=== PATIENT | male | born 1990 | race Caucasian/White ===

== ENCOUNTER 2016-12-17 19:57 | Emergency (ER) | payer BC ==
--- NOTE | 2016-12-17 20:24 | ERNOTE ---
Integumentary HPI - Narrative Date of Service: 12/17/16 - General Presenting Symptoms: rash Time Seen by Provider: 12/17/16 20:21 Source: patient, RN notes reviewed Exam Limitations: no limitations - Immun/Allergies/Home Medications Immunizations: IMMUNIZATION HX Immunizations Up to Date Yes History of Influenza Vaccine Yes Allergies/Adverse Reactions: Allergies Allergy/AdvReac Type Severity Reaction Status Date / Time No Known Allergies Allergy Verified 12/17/16 20:03 Home Medications: HOME MEDICATIONS Triamcinolone Acetonide [Kenalog 0.1%] 1 appl TP TID #45 gm 12/17/16 [Last Taken Unknown] predniSONE [Prednisone] 2 tab PO DAILY #15 tab 12/17/16 [Last Taken Unknown] predniSONE [Prednisone] 3 tab PO DAILY 12/17/16 [Last Taken 12/17/16 18:00] - History of Present Illness Narrative: 26 y/o male ambulatory to the ED with a rash covering most of his body that began 2 days ago. [place] been [place] brush. He was seen elsewhere 2 days ago and given a steroid injection. He was also started on prednisone 60 mg daily. He has taken the prednisone today but he has not had any Benadryl since yesterday. He also reports feeling like the rash is in his throat. Date (Duration): 12/15/16 Location: Reports: generalized Quality: Reports: itching Severity: severe Exposure: Reports: poison brandi/oak Prior Treatment: Reports: recently seen, treated by physician. Denies: currently on antibiotics Review of Systems - Review of Systems Constitutional: Absent: fever, chills, malaise EYE: Absent: eye pain, eye discharge ENT: Absent: nose congestion, nasal drainage, sore throat, throat swelling Respiratory: Absent: shortness of breath, cough, wheezing, stridor Cardiology: Present: no symptoms reported Gastrointestinal/Abdominal: Absent: nausea, vomiting, abdominal pain Musculoskeletal: Absent: muscle pain, joint pain Skin: Present: rash, lesions, change in color Neurological: Absent: headache, dizziness/light-headedness Endocrine: Present: no symptoms reported Hematologic/Lymphatic: Present: no symptoms reported Psych: Present: no symptoms reported - Patient's Past Medical History Patient History - Medical: History Unknown Patient History - Cardiac/Respiratory: History Unknown Patient History - Cancer: History Unknown Patient History - Surgical Procedures: No surgical history Patient History - Other: None - Social History Living Situations: home Does anyone smoke in the home?: Yes Smoking Status: Current every day smoker Patient requests Smoking Cessation Consult: No Initiate information on Smoking Cessation: No Alcohol Use: none Drug Use: none - Immunizations Immunizations Up to Date: Yes History of Influenza Vaccine: Yes Physical Exam - Physical Exam General Appearance: Present: alert, no apparent distress, thin Eye Exam: Normal inspection: bilateral Ears, Nose, Throat: Present: normal ENT inspection. Absent: nasal congestion, pharyngeal swelling, tonsillar swelling Neck: Present: normal inspection, nontender, supple, full range of motion Respiratory: Present: no respiratory distress, normal breath sounds, no accessory muscle use, lungs clear Cardiovascular/Chest: Present: regular rate, rhythm, no murmur Extremity Exam: Present: normal inspection, normal range of motion, no edema Neurological Exam: Present: alert, oriented, normal mood/affect, no motor/ sensory deficits Skin Exam: Present: warm/dry, skin rash - widespread erythematous maculopapular eruption covering entire body - no drainage ED Progress - Vital Signs Patient's Vital Signs:: I have reviewed the patient's vital signs. Vital Signs: Vital Signs 12/17/16 20:01 Temperature 36.8 C Pulse Rate 77 Respiratory 18 Rate Blood Pressure 112/76 O2 Sat by Pulse 99 Oximetry - Progress/Reassessment Chief Complaint: Rash Progress:: Improved Progress Note-Subjective: 12/17/16 21:34 Rash appears less red. Verbalizes relief of itching and throat swelling. Departure Clinical Impression: Poison brandi dermatitis - Departure Disposition: Home self-care Condition: Stable Instructions: Poison Brandi Dermatitis, [id number] Additional Instructions: Continue Benadryl 25 to 50 mg every 6 hours for at least 2 days Return if symptoms worsen Prescriptions: Triamcinolone Acetonide [Kenalog 0.1%] 1 appl TP TID #45 gm predniSONE [Prednisone] 2 tab PO DAILY #15 tab
[2016-12-17] MEDS ORDERED: METHYLPREDNISOLONE SOD SUCC/PF 125 MG/2 ML VIAL IV ONE (20:32)
[2016-12-17] MEDS ORDERED: diphenhydrAMINE HCL 50 MG/ML VIAL IV ONE (20:33)
[2016-12-17] MEDS ORDERED: FAMOTIDINE 10 MG/ML VIAL IV ONE ×2 (20:33→20:55)
[2016-12-17] MEDS ORDERED: diphenhydrAMINE HCL 50 MG/ML VIAL ONE (20:55)
[2016-12-17] MEDS ORDERED: METHYLPREDNISOLONE SOD SUCC/PF 125 MG/2 ML VIAL ONE (20:55)
[2016-12-17] MEDS ORDERED: diphenhydrAMINE HCL 50 MG CAPSULE PO ONE ×2 (21:32→21:36)
[2016-12-17 21:34] VITALS: BP 113/76
== END 2016-12-17 21:45 | disposition home or self-care (01) ==
LOC: ER 19:57
DX: L23.7 Allergic contact dermatitis due to plants, except food (principal); F17.200 Nicotine dependence, unspecified, uncomplicated